=== PATIENT | male | born 1950 | race Caucasian/White ===

== ENCOUNTER → 2019-08-27 | Outpatient (CLI) | payer MEDICARE ==
[~2019-08-27] VITALS: Ht 165.1 cm; Wt 89.2 kg
[~2019-08-27] MED LIST: AMLO-150 PO; BACITRACIN 50,000 UNIT ONE; BUPIVACAINE/PF 0.5% ONE; EPINEPHRINE 1 MG/ML, 1ML ONE; FENTANYL PF 250 MCG/5ML ONE; HYDR-3245 PO; LACTATED RINGERS 1,000 ML IV SCH; LISI40TA PO; METH750T2 PO; MIDAZOLAM 1 MG/ML, 2ML ONE; PRAV20TA2 PO; PROPOFOL 0 ML ONE; THROMBIN 5,000 UNIT VIAL TP ONE
[2019-08-27 07:46] VITALS: BP 167/85
== END | disposition home or self-care (01) ==
LOC: ORIP 06:50 → UNDOADMIN 06:50 → OUT 06:50 → EDSTATUS 09:00 → UNDODISIN 09:39
PROVIDERS: ATTEND Neurological Surgery
DX: Z02.9 Encounter for administrative examinations, unspecified (principal)
CPT/HCPCS: J0171; J2250; J2704; J3010; J7120